=== PATIENT | female | born 1985 | race Caucasian/White ===

== ENCOUNTER 2022-05-03 17:44 | Emergency (ER) | payer BC, MEDICAID, OTHER ==
[~2022-05-03] VITALS: Ht 167.6 cm; Wt 63.6 kg
[2022-05-03 18:28] VITALS: BP 158/100
[2022-05-03] MEDS ORDERED: emtricitabine/tenofovir 200mg/300mg tablet PO ONE (21:05)
[2022-05-03 22:03] LABS: HIV ANTIBODY 1&2 RAPID NON-REACTIVE (Neg)
== END 2022-05-03 22:21 | disposition home or self-care (01) ==
LOC: ER 17:46
DX: Z20.2 Contact with and (suspected) exposure to infections with a predominantly sexual mode of transmission (principal); Z11.3 Encounter for screening for infections with a predominantly sexual mode of transmission
CPT/HCPCS: 36415; 86592; 86703; 87491; 99283

== ENCOUNTER 2022-05-09 09:58 | Emergency (ER) | payer BC ==
[~2022-05-09] VITALS: Ht 167.6 cm; Wt 63.6 kg
[2022-05-09 10:14] VITALS: BP 144/93
== END 2022-05-09 12:17 | disposition home or self-care (01) ==
LOC: ER 09:59
DX: Z11.3 Encounter for screening for infections with a predominantly sexual mode of transmission (principal)
CPT/HCPCS: 36415; 86780; 99283